=== PATIENT | female | born 1930 | race Caucasian/White ===

== ENCOUNTER 2017-07-09 05:26 | Emergency (ER) | payer MEDICARE ==
[2017-07-09] MEDS ORDERED: ASPIRIN 325 MG TABLET ONE (06:11)
[2017-07-09 06:23] LABS: BASOPHILS % (AUTO) 0.3 % (0.0-5.0); EOSINOPHILS % (AUTO) 1.1 % (0.0-8.0); HEMATOCRIT 27.8 % (36-48); LYMPHOCYTES % (AUTO) 44.4 % (21.0-51.0); MEAN CORPUSCULAR HGB CONC 33.8 g/dL (32.0-36.0); MEAN CORPUSCULAR VOLUME 97.6 fL (79-99); MONOCYTES % (AUTO) 6.3 % (3.0-13.0); NEUTROPHILS % (AUTO) 47.9 % (40.0-77.0); PLATELET COUNT (AUTO) 184 K/uL (130-400); RED BLOOD CELL COUNT(AUTO) 2.85 MIL/uL (4.00-5.50); RED CELL DISTRIBUTION WIDTH 16.8 % (11.0-15.5); WHITE BLOOD COUNT (AUTO) 8.2 K/uL (4.8-10.8)
[2017-07-09 06:56] LABS: CREATININE 0.9 mg/dL (0.5-1.5); POTASSIUM 4.3 mmol/L (3.5-5.1)
[2017-07-09 07:07] LABS: INR 0.95 (0.85-1.15)
[2017-07-09 07:13] LABS: ALBUMIN 3.6 g/dL (3.5-5.0); BILIRUBIN,TOTAL 0.3 mg/dL (0.2-1.0); CREATINE KINASE MB 0.8 ng/mL (0.5-3.6); TOTAL PROTEIN, SERUM 7.9 g/dL (6.0-8.3)
[2017-07-09 07:14] LABS: B-TYPE NATRIURETIC PEPTIDE 117 pg/mL (0-100)
[2017-07-09 07:34] LABS: APPEARANCE,URINE Clear (CLEAR); BILIRUBIN,URINE Negative (NEGATIVE); COLOR,URINE Yellow (YELLOW); GLUCOSE, URINE (UA) Negative (NEGATIVE); KETONES,URINE Negative (NEGATIVE); LEUKOCYTE ESTERASE ,URINE Negative (NEGATIVE); NITRATE,URINE Negative (NEGATIVE); OCCULT BLOOD,URINE Negative (NEGATIVE); PROTEIN,URINE Negative (NEGATIVE); UROBILINOGEN,URINE 0.2 mg/dL (0.2-1.0)
== END 2017-07-09 10:26 | disposition home or self-care (01) ==
LOC: EDH 05:26
DX: S39.82XA Other specified injuries of lower back, initial encounter (principal); R42 Dizziness and giddiness; M25.539 Pain in unspecified wrist; E78.5 Hyperlipidemia, unspecified; K21.9 Gastro-esophageal reflux disease without esophagitis; R79.1 Abnormal coagulation profile; F10.99 Alcohol use, unspecified with unspecified alcohol-induced disorder; W01.0XXA Fall on same level from slipping, tripping and stumbling without subsequent striking against object, initial encounter; Y93.89 Activity, other specified; Y92.098 Other place in other non-institutional residence as the place of occurrence of the external cause; Y99.8 Other external cause status
CPT/HCPCS: 36415; 70450; 71045; 72100; 80053; 81003; 82550; 82553; 83874; 83880; 84484; 85025; 85610; 85730; 93005; 99285; G0481

== ENCOUNTER 2017-07-13 14:29 | Inpatient (IN) | payer MEDICARE ==
[~2017-07-13] VITALS: Ht 160 cm; Wt 50.7 kg
[2017-07-13] MEDS ORDERED: ASPIRIN 81MG TAB.CHEW ONE (15:15)
[2017-07-13] MEDS ORDERED: NITROGLYCERIN 0.4 MG SL TAB SL ONE (15:16)
[2017-07-13 15:22] LABS: BASOPHILS % (AUTO) 0.8 % (0.0-5.0); EOSINOPHILS % (AUTO) 0.2 % (0.0-8.0); HEMATOCRIT 29.1 % (36-48); LYMPHOCYTES % (AUTO) 27.5 % (21.0-51.0); MEAN CORPUSCULAR HEMOGLOBIN 32.9 pg (27.0-33.0); MEAN CORPUSCULAR HGB CONC 33.6 g/dL (32.0-36.0); MEAN CORPUSCULAR VOLUME 97.7 fL (79-99); NEUTROPHILS % (AUTO) 68.5 % (40.0-77.0); NUCLEATED RED BLOOD CELLS 0.1 % (0.0-0.19); PLATELET COUNT (AUTO) 218 K/uL (130-400); RED BLOOD CELL COUNT(AUTO) 2.98 MIL/uL (4.00-5.50); WHITE BLOOD COUNT (AUTO) 7.6 K/uL (4.8-10.8)
[2017-07-13 15:30] LABS: ABG BASE EXCESS -12.3 mmol/L (-2.0-3.0); ABG HCO3 7.7 mmol/L (21.0-28.0); ABG OXYGEN SATURATION 98.1 % (95.0-99.0); ABG PCO2 < 18 mmHg (32-45)
[2017-07-13 15:41] LABS: CREATININE 1.3 mg/dL (0.5-1.5); POTASSIUM 4.2 mmol/L (3.5-5.1)
[2017-07-13 15:42] LABS: INR 1.14 (0.85-1.15); PARTIAL THROMBOPLASTIN TIME 25.6 SEC (26.3-35.5); PROTHROMBIN TIME 11.9 SEC (9.6-11.6)
[2017-07-13 15:56] LABS: ALBUMIN 3.3 g/dL (3.5-5.0); BILIRUBIN,TOTAL 0.5 mg/dL (0.2-1.0); CREATINE KINASE MB 12.9 ng/mL (0.5-3.6); TOTAL PROTEIN, SERUM 8.3 g/dL (6.0-8.3)
[2017-07-13] MEDS ORDERED: IOPAMIDOL-370 100 ML VIAL IV ONE (16:40)
[2017-07-13 16:45] LABS: BILIRUBIN,URINE Negative (NEGATIVE); COLOR,URINE Yellow (YELLOW); GLUCOSE, URINE (UA) Negative (NEGATIVE); KETONES,URINE 15 mg/dL (NEGATIVE); LEUKOCYTE ESTERASE ,URINE Large (NEGATIVE); NITRATE,URINE Negative (NEGATIVE); OCCULT BLOOD,URINE Negative (NEGATIVE); PROTEIN,URINE Trace (NEGATIVE); UROBILINOGEN,URINE 0.2 mg/dL (0.2-1.0)
[2017-07-13 16:46] LABS: APPEARANCE,URINE SLIGHTLY CLOUDY (CLEAR)
[2017-07-13 17:09] LABS: BACTERIA,URINE Few /HPF (None Seen); RBC,URINE 0-1 /HPF (0-1)
[2017-07-13 17:10] LABS: SQUAMOUS EPITHELIAL CELL,UR Moderate /LPF (0-2); TRANSITIONAL EPI CELLS,URINE Few /LPF (None Seen)
[2017-07-13] MEDS ORDERED: SODIUM CHLORIDE 0.9% 500ML 500 ML IV ONE (17:38)
[2017-07-13] MEDS ORDERED: ENOXAPARIN SODIUM 60 MG/0.6 ML SQ ONE (17:38)
[2017-07-13] MEDS ORDERED: PREDNISONE 20 MG TABLET ONE (18:49)
[2017-07-13 20:00] VITALS: BP 126/65
[2017-07-13] MEDS ORDERED: POTASSIUM CHLORIDE 20 MEQ ERTAB PO PRN (21:15)
[2017-07-13] MEDS ORDERED: HYDRALAZINE HCL 20 MG/ML VIAL IV PRN (21:15)
[2017-07-13] MEDS ORDERED: ACETAMINOPHEN 325 MG TAB PO PRN (21:15)
[2017-07-13] MEDS ORDERED: CEFTRIAXONE 1GM/D5W 50ML 50 ML IV SCH (21:15)
[2017-07-13] MEDS ORDERED: ONDANSETRON HCL 4 MG/2 ML VIAL IV PRN (21:15)
[2017-07-13] MEDS ORDERED: ENOXAPARIN SODIUM 80 MG/0.8 ML SQ ONE (21:27)
[2017-07-13] MEDS: CEFTRIAXONE SODIUM 1 GM IVP SCH (23:00)
[2017-07-14 06:00] VITALS: BP 125/63
[2017-07-14] MEDS: IPRATROPIUM/ALBUTEROL SULFATE 3 ML SOLUTION IH SCH ×3 (06:08→19:11)
[2017-07-14] MEDS: FAMOTIDINE 20MG TAB 20 MG TAB PO SCH (08:11)
[2017-07-14 09:06] LABS: HEMATOCRIT 28.6 % (36-48); MEAN CORPUSCULAR HEMOGLOBIN 31.8 pg (27.0-33.0); MEAN CORPUSCULAR HGB CONC 32.8 g/dL (32.0-36.0); MEAN CORPUSCULAR VOLUME 96.7 fL (79-99); NUCLEATED RED BLOOD CELLS 0.2 % (0.0-0.19); PLATELET COUNT (AUTO) 255 K/uL (130-400); RED BLOOD CELL COUNT(AUTO) 2.96 MIL/uL (4.00-5.50); RED CELL DISTRIBUTION WIDTH 17.9 % (11.0-15.5); WHITE BLOOD COUNT (AUTO) 11.2 K/uL (4.8-10.8)
[2017-07-14] MEDS ORDERED: RISPERIDONE 1 MG TABLET PO SCH (09:15)
[2017-07-14] MEDS ORDERED: ATOR20TA PO (09:24)
[2017-07-14] MEDS ORDERED: OMEP20CA10 PO (09:24)
[2017-07-14] MEDS ORDERED: ASPI-555 PO (09:24)
[2017-07-14] MEDS ORDERED: MECL-111 PO (09:24)
[2017-07-14] MEDS ORDERED: ENAL5TAB PO (09:24)
[2017-07-14 09:27] LABS: CARBON DIOXIDE 14 mmol/L (21-32); CHLORIDE 107 mmol/L (101-111); CREATININE 1.5 mg/dL (0.5-1.5); GLOMERULAR FILTR. RATE CALC 35 mL/min (>60); GLUCOSE,RANDOM 173 mg/dL (70-105); POTASSIUM 4.4 mmol/L (3.5-5.1); SODIUM SERUM 140 mmol/L (136-145); THYROID STIMULATING HORMONE 0.31 uIU/mL (0.36-3.74); UREA NITROGEN, BLOOD 40 mg/dL (7-18)
[2017-07-14 09:33] LABS: % IRON SATURATION 29.3 % (22-44); FERRITIN 41 ng/mL (15-150); IRON, SERUM 78 mcg/dL (50-170); TOTAL IRON BINDING CAPACITY 266 mcg/dL (250-450)
[2017-07-14 09:42] VITALS: BP 114/73
[2017-07-14 09:49] LABS: RETICULOCYTE % (AUTO) 2.26 % (0.42-2.23)
[2017-07-14 12:08] VITALS: BP 132/58
[2017-07-14] MEDS ORDERED: SODIUM BICARBONATE 650 MG TAB PO PRN (13:15)
[2017-07-14 13:17] LABS: ABG BASE EXCESS -11.1 mmol/L (-2.0-3.0); ABG HCO3 9.4 mmol/L (21.0-28.0); ABG OXYGEN SATURATION 99.2 % (95.0-99.0); ABG PCO2 < 18 mmHg (32-45)
[2017-07-14] MEDS: DEXTROSE 5 % AND 0.9 % NACL 1,000 ML IV SCH (13:52)
[2017-07-14] MEDS ORDERED: DIATR MEGLU/DIATRIZOATE SODIUM 30 ML BOTTLE ONE (13:58)
[2017-07-14] MEDS ORDERED: SODIUM BICARB 50MEQ 50ML VIAL IV ONE (14:00)
[2017-07-14] MEDS ORDERED: SODIUM BICARB 50MEQ 50ML VIAL IV SCH (14:43)
[2017-07-14] MEDS ORDERED: WATER IVP SCH (15:24)
[2017-07-14] MEDS ORDERED: DEXTROSE 5% IVP SCH (15:24)
[2017-07-14] MEDS ORDERED: SODIUM BICARB 8.4% IVP SCH (15:24)
[2017-07-14] MEDS ORDERED: SYRING IVP SCH (15:24)
[2017-07-14 16:49] VITALS: BP 136/90
[2017-07-14 20:00] VITALS: BP 125/63
[2017-07-14] MEDS: RISPERIDONE 1 MG TABLET PO SCH (20:34)
[2017-07-14] MEDS: APIXABAN 2.5 MG TABLET PO SCH (20:34)
[2017-07-14] MEDS: CEFTRIAXONE SODIUM 1 GM IVP SCH (20:35)
[2017-07-15] VITALS: BP 96/40
[2017-07-15] MEDS: IPRATROPIUM/ALBUTEROL SULFATE 3 ML SOLUTION IH SCH ×5 (00:43→23:10)
[2017-07-15 04:00] VITALS: BP 83/32
[2017-07-15 07:03] VITALS: BP 90/58
[2017-07-15 07:15] LABS: HEMATOCRIT 24.4 % (36-48); MEAN CORPUSCULAR HEMOGLOBIN 32.2 pg (27.0-33.0); MEAN CORPUSCULAR HGB CONC 33.7 g/dL (32.0-36.0); MEAN CORPUSCULAR VOLUME 95.5 fL (79-99); PLATELET COUNT (AUTO) 169 K/uL (130-400); RED BLOOD CELL COUNT(AUTO) 2.56 MIL/uL (4.00-5.50); RED CELL DISTRIBUTION WIDTH 17.6 % (11.0-15.5); WHITE BLOOD COUNT (AUTO) 6.4 K/uL (4.8-10.8)
[2017-07-15 07:25] LABS: CREATININE 1.4 mg/dL (0.5-1.5)
[2017-07-15 07:32] LABS: POTASSIUM 2.8 mmol/L (3.5-5.1)
[2017-07-15] MEDS: RISPERIDONE 1 MG TABLET PO SCH ×2 (09:00→20:42)
[2017-07-15] MEDS ORDERED: ENALAPRIL MALEATE 5 MG TAB PO SCH (09:00)
[2017-07-15] MEDS: POTASSIUM CHLORIDE 20MEQ/100ML 100 ML IV PRN ×2 (09:46→12:40)
[2017-07-15] MEDS: LIDOCAINE HCL-MPF 1% 2ML VIAL IVP PRN ×2 (09:46→12:40)
[2017-07-15] MEDS: ATORVASTATIN CALCIUM 20 MG TABLET PO SCH (10:26)
[2017-07-15] MEDS: FAMOTIDINE 20MG TAB 20 MG TAB PO SCH (10:26)
[2017-07-15] MEDS: APIXABAN 2.5 MG TABLET PO SCH ×2 (10:26→20:42)
[2017-07-15] MEDS: ASPIRIN 81 MG EC TAB PO SCH (10:26)
[2017-07-15 11:02] VITALS: BP 93/47
[2017-07-15 11:22] LABS: CREATININE 1.3 mg/dL (0.5-1.5)
[2017-07-15 11:26] LABS: POTASSIUM 2.9 mmol/L (3.5-5.1)
[2017-07-15] MEDS: DEXTROSE 5 % AND 0.9 % NACL 1,000 ML IV SCH ×3 (12:41→20:44)
[2017-07-15 16:16] VITALS: BP 120/61
[2017-07-15 19:15] VITALS: BP 99/50
[2017-07-15] MEDS: CEFTRIAXONE SODIUM 1 GM IVP SCH (22:06)
[2017-07-16] VITALS: BP 120/89
[2017-07-16 04:00] VITALS: BP 117/75
[2017-07-16 05:00] LABS: HEMATOCRIT 21.7 % (36-48); MEAN CORPUSCULAR HEMOGLOBIN 32.1 pg (27.0-33.0); MEAN CORPUSCULAR HGB CONC 33.1 g/dL (32.0-36.0); MEAN CORPUSCULAR VOLUME 96.8 fL (79-99); PLATELET COUNT (AUTO) 146 K/uL (130-400); RED BLOOD CELL COUNT(AUTO) 2.24 MIL/uL (4.00-5.50); WHITE BLOOD COUNT (AUTO) 7.8 K/uL (4.8-10.8)
[2017-07-16 05:28] LABS: CREATININE 0.9 mg/dL (0.5-1.5)
[2017-07-16] MEDS: POTASSIUM CHLORIDE 10% ELIXIR 20 MEQ/15 ML UDCUP PO PRN (05:40)
[2017-07-16] MEDS: LIDOCAINE HCL-MPF 1% 2ML VIAL IVP PRN ×2 (05:40→13:42)
[2017-07-16] MEDS: POTASSIUM CHLORIDE 20MEQ/100ML 100 ML IV PRN ×2 (05:40→13:41)
[2017-07-16] MEDS: DEXTROSE 5 % AND 0.9 % NACL 1,000 ML IV SCH ×2 (05:42→17:31)
[2017-07-16] MEDS: IPRATROPIUM/ALBUTEROL SULFATE 3 ML SOLUTION IH SCH ×4 (06:26→23:04)
[2017-07-16 08:00] VITALS: BP 101/45
[2017-07-16] MEDS: RISPERIDONE 1 MG TABLET PO SCH (09:00)
[2017-07-16 09:38] LABS: HEMATOCRIT 21.8 % (36-48)
[2017-07-16] MEDS: FAMOTIDINE 20MG TAB 20 MG TAB PO SCH (09:54)
[2017-07-16] MEDS: ASPIRIN 81 MG EC TAB PO SCH (09:54)
[2017-07-16] MEDS: APIXABAN 2.5 MG TABLET PO SCH ×2 (09:54→20:47)
[2017-07-16] MEDS: ATORVASTATIN CALCIUM 20 MG TABLET PO SCH (09:55)
[2017-07-16 11:00] VITALS: BP 107/39
[2017-07-16 13:14] LABS: OCCULT BLOOD STOOL SINGLE ONLY NEGATIVE (NEGATIVE)
[2017-07-16 16:00] VITALS: BP 129/59
[2017-07-16] MEDS: ACETAMINOPHEN 325 MG TAB PO PRN (16:37)
[2017-07-16] MEDS: CEFTRIAXONE SODIUM 1 GM IVP SCH (20:47)
[2017-07-16] MEDS ORDERED: RISPERIDONE 1 MG TABLET PO PRN (21:00)
[2017-07-16 23:41] VITALS: BP 135/59
[2017-07-17] MEDS: ACETAMINOPHEN 325 MG TAB PO PRN ×3 (04:07→16:44)
[2017-07-17 04:26] VITALS: BP 120/60
[2017-07-17 05:20] LABS: HEMATOCRIT 23.4 % (36-48); MEAN CORPUSCULAR HEMOGLOBIN 32.2 pg (27.0-33.0); MEAN CORPUSCULAR HGB CONC 33.2 g/dL (32.0-36.0); MEAN CORPUSCULAR VOLUME 97.2 fL (79-99); NUCLEATED RED BLOOD CELLS 0.1 % (0.0-0.19); PLATELET COUNT (AUTO) 167 K/uL (130-400); RED CELL DISTRIBUTION WIDTH 18.2 % (11.0-15.5); WHITE BLOOD COUNT (AUTO) 8.5 K/uL (4.8-10.8)
[2017-07-17 05:40] LABS: B-TYPE NATRIURETIC PEPTIDE 687 pg/mL (0-100)
[2017-07-17 06:06] LABS: ALBUMIN 2.4 g/dL (3.5-5.0); BILIRUBIN,TOTAL 0.2 mg/dL (0.2-1.0); CREATININE 0.7 mg/dL (0.5-1.5); POTASSIUM 3.4 mmol/L (3.5-5.1); TOTAL PROTEIN, SERUM 6.1 g/dL (6.0-8.3)
[2017-07-17] MEDS: POTASSIUM CHLORIDE 10% ELIXIR 20 MEQ/15 ML UDCUP PO PRN ×2 (06:14→08:20)
[2017-07-17] MEDS: IPRATROPIUM/ALBUTEROL SULFATE 3 ML SOLUTION IH SCH ×3 (06:37→19:40)
[2017-07-17 08:00] VITALS: BP 156/61
[2017-07-17] MEDS: FAMOTIDINE 20MG TAB 20 MG TAB PO SCH (08:22)
[2017-07-17] MEDS: ATORVASTATIN CALCIUM 20 MG TABLET PO SCH (08:22)
[2017-07-17] MEDS: ASPIRIN 81 MG EC TAB PO SCH (08:22)
[2017-07-17] MEDS: APIXABAN 2.5 MG TABLET PO SCH ×2 (08:22→22:08)
[2017-07-17 11:46] VITALS: BP 157/73
[2017-07-17 16:09] VITALS: BP 158/78
[2017-07-17 19:47] VITALS: BP 178/82
[2017-07-17] MEDS: CEFTRIAXONE SODIUM 1 GM IVP SCH (22:10)
[2017-07-17 23:46] VITALS: BP 146/74
[2017-07-18] MEDS: IPRATROPIUM/ALBUTEROL SULFATE 3 ML SOLUTION IH SCH ×4 (01:11→19:40)
[2017-07-18 04:48] VITALS: BP 154/86
[2017-07-18 08:00] VITALS: BP 144/68
[2017-07-18] MEDS: ATORVASTATIN CALCIUM 20 MG TABLET PO SCH (09:00)
[2017-07-18] MEDS: FAMOTIDINE 20MG TAB 20 MG TAB PO SCH (09:00)
[2017-07-18 11:09] LABS: BASOPHILS % (AUTO) 0.4 % (0.0-5.0); EOSINOPHILS % (AUTO) 1.2 % (0.0-8.0); HEMATOCRIT 27.2 % (36-48); MEAN CORPUSCULAR HEMOGLOBIN 33.4 pg (27.0-33.0); MEAN CORPUSCULAR HGB CONC 34.7 g/dL (32.0-36.0); MEAN CORPUSCULAR VOLUME 96.3 fL (79-99); MONOCYTES % (AUTO) 4.9 % (3.0-13.0); NEUTROPHILS % (AUTO) 54.5 % (40.0-77.0); PLATELET COUNT (AUTO) 175 K/uL (130-400); RED BLOOD CELL COUNT(AUTO) 2.82 MIL/uL (4.00-5.50); RED CELL DISTRIBUTION WIDTH 17.1 % (11.0-15.5); WHITE BLOOD COUNT (AUTO) 8.2 K/uL (4.8-10.8)
[2017-07-18 12:00] VITALS: BP 153/77
[2017-07-18] MEDS: ASPIRIN 81 MG EC TAB PO SCH (13:16)
[2017-07-18] MEDS: APIXABAN 2.5 MG TABLET PO SCH (13:16)
[2017-07-18 16:00] VITALS: BP 123/76
== END 2017-07-18 20:14 | DRG 175 ==
LOC: EDH 14:29 → EDHIP 17:41 → OBSVTOIN 17:41 → 4BH 19:16
PROVIDERS: ADMIT Internal Medicine; ATTEND Internal Medicine
DX: I26.99 Other pulmonary embolism without acute cor pulmonale (principal); G93.41 Metabolic encephalopathy; E87.2 Acidosis; J43.9 Emphysema, unspecified; N39.0 Urinary tract infection, site not specified; R64 Cachexia; E86.0 Dehydration; D64.9 Anemia, unspecified; G89.29 Other chronic pain; E78.5 Hyperlipidemia, unspecified; I10 Essential (primary) hypertension; K21.9 Gastro-esophageal reflux disease without esophagitis; Z79.01 Long term (current) use of anticoagulants; Z87.891 Personal history of nicotine dependence; Z82.49 Family history of ischemic heart disease and other diseases of the circulatory system
CPT/HCPCS: 36415; 36600; 70450; 71045; 71275; 74176; 80048; 80053; 81001; 82270; 82550; 82553; 82607; 82728; 82746; 82803; 83874; 83880; 84132; 84443; 84484; 85014; 85018; 85025; 85027; 85378; 85610; 85730; 87088; 87186; 87324; 93005; 93306; 93970; 94640; 94664; 97039; A4218; J0696; J1650; J3480; J3490; J7040; J7042; J7060; Q9963; Q9967